=== PATIENT | female | born 1985 | race African-American/Black ===

== ENCOUNTER 2017-09-29 20:31 | Emergency (ER) | payer OTHER ==
[~2017-09-29] VITALS: Ht 160 cm; Wt 127.3 kg
[~2017-09-29 20:31] MED LIST: NOCURR
[2017-09-29 20:43] VITALS: BP 142/98
[2017-09-29] MEDS ORDERED: ESCI10TA PO (20:44)
[2017-09-29] MEDS ORDERED: IBUPROFEN 800 MG TABLET PO ONE (21:15)
[2017-09-29] MEDS ORDERED: HYDROCODONE/ACETAMINOPHEN 5-325 MG TABLET PO ONE (21:45)
== END 2017-09-29 23:45 | disposition home or self-care (01) ==
LOC: EMS 20:32
DX: S90.112A Contusion of left great toe without damage to nail, initial encounter (principal); Z88.5 Allergy status to narcotic agent; W01.0XXA Fall on same level from slipping, tripping and stumbling without subsequent striking against object, initial encounter; Y93.89 Activity, other specified; Y92.89 Other specified places as the place of occurrence of the external cause; Y99.8 Other external cause status
CPT/HCPCS: 99284

== ENCOUNTER 2022-04-11 12:52 | Inpatient (IN) | payer MEDICAID ==
[~2022-04-11] VITALS: Ht 162.6 cm; Wt 108.4 kg
[~2022-04-11 12:52] MED LIST changes: +ESCI-8 PO; -NOCURR
[2022-04-11] MEDS ORDERED: LOPERAMIDE HCL 2 MG CAPSULE PO PRN (13:45)
[2022-04-11] MEDS ORDERED: MAG HYDROX/AL HYDROX/SIMETH ES 30 ML SUSPENSION UDCUP PO PRN (13:45)
[2022-04-11] MEDS ORDERED: PROMETHAZINE HCL 25 MG TABLET PO PRN (13:45)
[2022-04-11] MEDS ORDERED: HydrOXYzine PAMOATE 50 MG CAPSULE PO PRN (13:45)
[2022-04-11] MEDS ORDERED: OLANZapine 5 MG RAPDIS TABLET PO PRN (13:45)
[2022-04-11] MEDS ORDERED: TUBERCULIN, PURIFIED PROTEIN DERIVATIVE 5 TU/0.1 ML SYRINGE ID ONE (13:45)
[2022-04-11 13:46] LABS: GLUCOMETER DEV NAME(LOC) POC.BV
[2022-04-11 15:01] VITALS: BP 122/75
[2022-04-11] MEDS ORDERED: LURASIDONE HCL 20 MG TABLET PO PRN (15:15)
[2022-04-11] MEDS ORDERED: LURASIDONE HCL 20 MG TABLET PO ONE (15:15)
[2022-04-11] MEDS: THIAMINE 100 MG TABLET PO SCH (16:53)
[2022-04-11] MEDS: LURASIDONE HCL 40 MG TABLET PO SCH (16:53)
[2022-04-11] MEDS: GABAPENTIN 300 MG CAPSULE PO SCH (16:53)
[2022-04-11 20:21] VITALS: BP 112/69
[2022-04-11] MEDS: MELATONIN 5 MG TABLET PO SCH (20:33)
[2022-04-11] MEDS ORDERED: OLANZapine 5 MG RAPDIS TABLET PO SCH (21:00)
[2022-04-11] MEDS ORDERED: PRAZOSIN HCL 1 MG CAPSULE PO SCH (21:00)
[2022-04-12 07:43] LABS: BASOPHILS % (AUTO) 0.4 % (0.0-2.0); EOSINOPHILS % (AUTO) 3.3 % (1.0-6.0); HEMATOCRIT 38.8 % (36-46); HEMOGLOBIN 12.5 g/dL (12.0-16.0); LYMPHOCYTES # (AUTO) 1.5 K/uL (1.0-4.8); LYMPHOCYTES % (AUTO) 34.4 % (22.0-44.0); MEAN CORPUSCULAR HEMOGLOBIN 30.1 pg (26.0-34.0); MEAN CORPUSCULAR HGB CONC 32.2 G/dL (31.0-37.0); MEAN CORPUSCULAR VOLUME 93 fL (80-100); MONOCYTES # (AUTO) 0.3 K/uL (0.1-1.0); MONOCYTES % (AUTO) 7.2 % (2.0-9.0); NEUTROPHILS # (AUTO) 2.4 K/uL (1.8-7.7); NEUTROPHILS % (AUTO) 54.7 % (40.0-70.0); PLATELET COUNT (AUTO) 228 K/uL (150-450); RED BLOOD CELL COUNT(AUTO) 4.16 MIL/uL (4.00-5.20); RED CELL DISTRIBUTION WIDTH 15.6 % (11.5-14.5)
[2022-04-12 07:53] LABS: HEMOGLOBIN A1C 5.4 % (3.8-5.6)
[2022-04-12 08:06] LABS: ALANINE AMINOTRANSFERASE 24 U/L (12-78); ALBUMIN 2.6 g/dL (3.4-5.0); ALKALINE PHOSPHATASE 78 U/L (46-116); ANION GAP 4 mmol/L (8-16); ASPARTATE AMINOTRANSFERASE 16 U/L (15-37); BILIRUBIN,TOTAL 0.2 mg/dL (0.1-1.0); CALCIUM, TOTAL 8.6 mg/dL (8.8-10.5); CARBON DIOXIDE 29 mmol/L (22-29); CHLORIDE 105 mmol/L (98-107); CHOL/HDL RATIO 2.3 (3.9-5.7); CHOLESTEROL 142 mg/dL (131-200); CREATININE 0.65 mg/dL (0.60-1.30); FREE T4 (FREE THYROXINE) 0.86 ng/dL (0.76-1.46); GLOMERULAR FILTR. RATE CALC > 60 mL/min (>60); GLUCOSE,RANDOM 95 mg/dL (70-110); HCG,QUANTITATIVE < 1 mIU/mL (0-6); HDL CHOLESTEROL 63 mg/dL (40-60); LDL CHOL (CALC.) 74 mg/dL (0-130); POTASSIUM 4.1 mmol/L (3.5-5.1); SODIUM SERUM 138 mmol/L (136-145); THYROID STIMULATING HORMONE 0.67 uIU/mL (0.36-3.74); TRIGLYCERIDES 23 mg/dL (15-150); UREA NITROGEN, BLOOD 11 mg/dL (7-18)
[2022-04-12 08:57] VITALS: BP 104/67
[2022-04-12] MEDS ORDERED: FLUoxetine HCL 20 MG CAPSULE PO SCH (09:00)
[2022-04-12] MEDS: THIAMINE 100 MG TABLET PO SCH ×2 (09:09→16:55)
[2022-04-12] MEDS: MULTIVITAMINS WITH MINERALS, THERAPEUTIC TABLET PO SCH (09:09)
[2022-04-12] MEDS: GABAPENTIN 300 MG CAPSULE PO SCH ×2 (09:09→12:54)
[2022-04-12] MEDS: NALTREXONE HCL 50 MG TABLET PO SCH (09:09)
[2022-04-12] MEDS: FOLIC ACID 1 MG TABLET PO SCH (09:09)
[2022-04-12] MEDS: OMEGA-3/DHA/EPA/FISH OIL 1,000 MG CAPSULE PO SCH (09:09)
[2022-04-12] MEDS: DEXTROMETHORPHAN HBR/QUINIDINE 20/10 MG CAPSULE PO SCH (09:10)
[2022-04-12] MEDS: ACETAMINOPHEN 325 MG TABLET PO PRN (09:10)
[2022-04-12] MEDS: GABAPENTIN 400 MG CAPSULE PO SCH (16:56)
[2022-04-12] MEDS: LURASIDONE HCL 40 MG TABLET PO SCH (16:56)
[2022-04-12] MEDS: MELATONIN 5 MG TABLET PO SCH (20:14)
[2022-04-12 20:45] VITALS: BP 113/66
[2022-04-12] MEDS ORDERED: PRAZOSIN HCL 2 MG CAPSULE PO SCH (21:00)
[2022-04-12] MEDS: ZOLPIDEM TARTRATE 10 MG TABLET PO PRN (21:58)
[2022-04-12] MEDS: GuaiFENesin/D-METHORPHAN [SUGAR-FREE] 200-20MG/10 ML SYRUP UDCUP PO PRN (21:58)
[2022-04-13 08:21] VITALS: BP 101/61
[2022-04-13] MEDS ORDERED: BuPROPion HCL XL 150 MG ER TABLET PO SCH (09:00)
[2022-04-13] MEDS: DEXTROMETHORPHAN HBR/QUINIDINE 20/10 MG CAPSULE PO SCH (09:34)
[2022-04-13] MEDS: FOLIC ACID 1 MG TABLET PO SCH (09:35)
[2022-04-13] MEDS: GABAPENTIN 400 MG CAPSULE PO SCH (09:35)
[2022-04-13] MEDS: MULTIVITAMINS WITH MINERALS, THERAPEUTIC TABLET PO SCH (09:35)
[2022-04-13] MEDS: THIAMINE 100 MG TABLET PO SCH ×2 (09:35→16:18)
[2022-04-13] MEDS: NALTREXONE HCL 50 MG TABLET PO SCH (09:35)
[2022-04-13] MEDS: OMEGA-3/DHA/EPA/FISH OIL 1,000 MG CAPSULE PO SCH (09:35)
[2022-04-13] MEDS: GABAPENTIN 300 MG CAPSULE PO SCH (16:18)
[2022-04-13] MEDS: LURASIDONE HCL 40 MG TABLET PO SCH (16:18)
[2022-04-13] MEDS: LORazepam 2 MG TABLET PO PRN (16:55)
[2022-04-13] MEDS: PRAZOSIN HCL 1 MG CAPSULE PO SCH (20:07)
[2022-04-13] MEDS: MELATONIN 5 MG TABLET PO SCH (20:07)
[2022-04-13 20:37] VITALS: BP 116/73
[2022-04-14 04:35] VITALS: BP 118/69
[2022-04-14 08:10] VITALS: BP 121/74
[2022-04-14] MEDS: NALTREXONE HCL 50 MG TABLET PO SCH (09:42)
[2022-04-14] MEDS: OMEGA-3/DHA/EPA/FISH OIL 1,000 MG CAPSULE PO SCH (09:42)
[2022-04-14] MEDS: DEXTROMETHORPHAN HBR/QUINIDINE 20/10 MG CAPSULE PO SCH (09:42)
[2022-04-14] MEDS: GABAPENTIN 300 MG CAPSULE PO SCH ×3 (09:42→16:57)
[2022-04-14] MEDS: THIAMINE 100 MG TABLET PO SCH ×2 (09:42→16:57)
[2022-04-14] MEDS: MULTIVITAMINS WITH MINERALS, THERAPEUTIC TABLET PO SCH (09:43)
[2022-04-14] MEDS: FOLIC ACID 1 MG TABLET PO SCH (09:43)
[2022-04-14] MEDS: LORazepam 2 MG TABLET PO PRN ×2 (10:02→16:15)
[2022-04-14] MEDS ORDERED: LURASIDONE HCL 60 MG TABLET PO SCH (17:00)
[2022-04-14] MEDS: MELATONIN 5 MG TABLET PO SCH (20:57)
[2022-04-14] MEDS: PRAZOSIN HCL 1 MG CAPSULE PO SCH (20:57)
[2022-04-14 21:09] VITALS: BP 102/60
[2022-04-15] MEDS: ZOLPIDEM TARTRATE 10 MG TABLET PO PRN (01:21)
[2022-04-15] MEDS: GuaiFENesin/D-METHORPHAN [SUGAR-FREE] 200-20MG/10 ML SYRUP UDCUP PO PRN (04:18)
[2022-04-15 08:15] VITALS: BP 115/80
[2022-04-15] MEDS: MULTIVITAMINS WITH MINERALS, THERAPEUTIC TABLET PO SCH (08:24)
[2022-04-15] MEDS: THIAMINE 100 MG TABLET PO SCH ×2 (08:24→16:57)
[2022-04-15] MEDS: GABAPENTIN 300 MG CAPSULE PO SCH ×3 (08:24→16:57)
[2022-04-15] MEDS: OMEGA-3/DHA/EPA/FISH OIL 1,000 MG CAPSULE PO SCH (08:24)
[2022-04-15] MEDS: DEXTROMETHORPHAN HBR/QUINIDINE 20/10 MG CAPSULE PO SCH (08:24)
[2022-04-15] MEDS: NALTREXONE HCL 50 MG TABLET PO SCH (08:24)
[2022-04-15] MEDS: FOLIC ACID 1 MG TABLET PO SCH (08:24)
[2022-04-15] MEDS: LORazepam 2 MG TABLET PO PRN (13:31)
[2022-04-15] MEDS: LURASIDONE HCL 80 MG TABLET PO SCH (16:57)
[2022-04-15 20:17] VITALS: BP 126/65
[2022-04-15] MEDS: PRAZOSIN HCL 2 MG CAPSULE PO SCH (20:26)
[2022-04-15] MEDS: MELATONIN 5 MG TABLET PO SCH (20:26)
[2022-04-16 04:20] VITALS: BP 134/68
[2022-04-16] MEDS: THIAMINE 100 MG TABLET PO SCH ×2 (09:09→17:03)
[2022-04-16] MEDS: BuPROPion HCL XL 150 MG ER TABLET PO SCH (09:09)
[2022-04-16] MEDS: FOLIC ACID 1 MG TABLET PO SCH (09:09)
[2022-04-16] MEDS: MULTIVITAMINS WITH MINERALS, THERAPEUTIC TABLET PO SCH (09:09)
[2022-04-16] MEDS: GABAPENTIN 300 MG CAPSULE PO SCH ×3 (09:09→17:03)
[2022-04-16] MEDS: OMEGA-3/DHA/EPA/FISH OIL 1,000 MG CAPSULE PO SCH (09:09)
[2022-04-16] MEDS: NALTREXONE HCL 50 MG TABLET PO SCH (09:09)
[2022-04-16 10:11] VITALS: BP 124/81
[2022-04-16] MEDS: LORazepam 2 MG TABLET PO PRN (15:14)
[2022-04-16] MEDS: LURASIDONE HCL 80 MG TABLET PO SCH (17:03)
[2022-04-16] MEDS: MELATONIN 5 MG TABLET PO SCH (20:12)
[2022-04-16] MEDS: PRAZOSIN HCL 2 MG CAPSULE PO SCH (20:12)
[2022-04-16 21:01] VITALS: BP 146/74
[2022-04-17 00:51] VITALS: BP 117/73
[2022-04-17] MEDS: ZOLPIDEM TARTRATE 10 MG TABLET PO PRN (00:55)
[2022-04-17 08:24] VITALS: BP 103/61
[2022-04-17] MEDS: GABAPENTIN 300 MG CAPSULE PO SCH ×3 (09:07→16:23)
[2022-04-17] MEDS: OMEGA-3/DHA/EPA/FISH OIL 1,000 MG CAPSULE PO SCH (09:07)
[2022-04-17] MEDS: MULTIVITAMINS WITH MINERALS, THERAPEUTIC TABLET PO SCH (09:08)
[2022-04-17] MEDS: NALTREXONE HCL 50 MG TABLET PO SCH (09:08)
[2022-04-17] MEDS: BuPROPion HCL XL 150 MG ER TABLET PO SCH (09:08)
[2022-04-17] MEDS: FOLIC ACID 1 MG TABLET PO SCH (09:08)
[2022-04-17] MEDS: THIAMINE 100 MG TABLET PO SCH ×2 (09:08→16:23)
[2022-04-17 10:41] LABS: GLUCOMETER DEV NAME(LOC) POC.BV
[2022-04-17] MEDS: LORazepam 2 MG TABLET PO PRN (11:05)
[2022-04-17] MEDS: LURASIDONE HCL 80 MG TABLET PO SCH (16:23)
[2022-04-17] MEDS: MELATONIN 5 MG TABLET PO SCH (20:12)
[2022-04-17] MEDS: PRAZOSIN HCL 2 MG CAPSULE PO SCH (20:13)
[2022-04-18 06:06] VITALS: BP 124/67
[2022-04-18] MEDS: ACETAMINOPHEN 325 MG TABLET PO PRN (06:09)
[2022-04-18 09:09] VITALS: BP 90/57
[2022-04-18] MEDS: OMEGA-3/DHA/EPA/FISH OIL 1,000 MG CAPSULE PO SCH (09:56)
[2022-04-18] MEDS: NALTREXONE HCL 50 MG TABLET PO SCH (09:56)
[2022-04-18] MEDS: BuPROPion HCL XL 150 MG ER TABLET PO SCH (09:56)
[2022-04-18] MEDS: GABAPENTIN 300 MG CAPSULE PO SCH ×3 (09:56→12:49)
[2022-04-18] MEDS: FOLIC ACID 1 MG TABLET PO SCH (09:56)
[2022-04-18] MEDS: THIAMINE 100 MG TABLET PO SCH (09:56)
[2022-04-18] MEDS: MULTIVITAMINS WITH MINERALS, THERAPEUTIC TABLET PO SCH (09:56)
[2022-04-18] MEDS ORDERED: MELA5TAB40 PO (13:19)
[2022-04-18] MEDS ORDERED: GABA-1181 PO (13:19)
[2022-04-18] MEDS ORDERED: LURA80TA2 PO (13:19)
[2022-04-18] MEDS ORDERED: NALT50TA PO (13:19)
[2022-04-18] MEDS ORDERED: PRAZ2 PO (13:19)
[2022-04-18] MEDS ORDERED: OMEG-135 PO (13:19)
[2022-04-18] MEDS ORDERED: BUPR-49 PO (13:19)
== END 2022-04-18 16:51 | disposition home or self-care (01) | DRG 750 ==
LOC: B2S 13:35
PROVIDERS: ADMIT Psychiatry & Neurology Psychiatry; ATTEND Psychiatry & Neurology Psychiatry
DX: F25.1 Schizoaffective disorder, depressive type (principal); E46 Unspecified protein-calorie malnutrition; R45.851 Suicidal ideations; F33.2 Major depressive disorder, recurrent severe without psychotic features; Z20.822 Contact with and (suspected) exposure to COVID-19; F17.210 Nicotine dependence, cigarettes, uncomplicated; E66.9 Obesity, unspecified; Z62.810 Personal history of physical and sexual abuse in childhood; G89.29 Other chronic pain; F41.0 Panic disorder [episodic paroxysmal anxiety]; M54.9 Dorsalgia, unspecified; D64.9 Anemia, unspecified; F43.10 Post-traumatic stress disorder, unspecified; J44.9 Chronic obstructive pulmonary disease, unspecified; Z55.9 Problems related to education and literacy, unspecified; Z59.9 Problem related to housing and economic circumstances, unspecified; Z68.41 Body mass index [BMI] 40.0-44.9, adult; Z63.9 Problem related to primary support group, unspecified; Z65.3 Problems related to other legal circumstances; Z79.899 Other long term (current) drug therapy; Z87.11 Personal history of peptic ulcer disease; Z91.51 Personal history of suicidal behavior; Z88.5 Allergy status to narcotic agent
CPT/HCPCS: 80053; 80061; 83036; 84439; 84443; 84702; 85025; 86592; Q9967